=== PATIENT | female | born 1965 | race Caucasian/White ===

== ENCOUNTER → 2016-05-06 | Outpatient (CLI) | payer OTHER ==
[~2016-05-06] MED LIST: NAPR-1169 PO
--- NOTE | 2016-05-06 11:10 | DIAGNOSTIC IMAGING REPORT ---
MRI OF THE RIGHT SHOULDER CLINICAL HISTORY: Right shoulder pain. COMPARISON STUDY: No priors. TECHNIQUE: MRI of the right shoulder was performed utilizing various T1 and T2 weighted sequences in the axial, sagittal, coronal planes. IV contrast was not administered for this examination. Several sequence was repeated due to motion artifact. Note that interpretation is suboptimal without plain film correlate. FINDINGS: Rotator cuff: There is tendinopathy of the supraspinatous tendon with significant partial thickness degenerative tearing. A small full-thickness rim rent tear is seen on coronal T2 fat-sat image #12 of 22. This measures 4 mm in length and is located approximately 7 mm from the leading edge. There is no associated musculotendinous retraction. There is tendinopathy of the infraspinatus tendon with partial thickness tearing. No full-thickness infraspinatus tear is seen. The teres minor and subscapularis tendons are intact. There is trace subacromial and subdeltoid bursal fluid. There is productive degenerative change with mild marrow edema identified at the acromioclavicular articulation. Biceps tendon: The long head of the biceps tendon is normal in signal intensity and located within the bicipital groove. The anchor is maintained. Labrum: There is a SLAP tear of the glenoid labrum. Shoulder joint: There is no joint effusion. The articular cartilage over the glenoid is well maintained. There is mild arthritic change and edema seen in the greater tuberosity of the humeral head. Musculature and soft tissues: The musculature of the shoulder is normal in bulk. There is minimal edema within the body of supraspinatous. No atrophy is seen. IMPRESSION: 1. There is tendinopathy with partial thickness degenerative tearing of the supraspinatus tendon. A small full-thickness rim rent tear is seen and detailed above. There is no musculotendinous retraction. 2. There is tendinopathy with partial-thickness tearing of the infraspinatus tendon. No full-thickness tear is seen. 3. There is a SLAP tear of the glenoid labrum. 4. There is mild arthritic change with marrow edema in the greater tuberosity of the humeral head. Electronically signed by: Aquiles Paez M.D. 05/06/2016 11:09 AM Dictated Date/Time: 05/06/2016 10:55 AM
== END | disposition home or self-care (01) ==
LOC: C.MRIBC 09:12
PROVIDERS: ATTEND Orthopaedic Surgery
DX: M75.101 Unspecified rotator cuff tear or rupture of right shoulder, not specified as traumatic (principal); S43.431A Superior glenoid labrum lesion of right shoulder, initial encounter; X58.XXXA Exposure to other specified factors, initial encounter